=== PATIENT | female | born 2000 | race Caucasian/White ===

== ENCOUNTER 2023-08-19 14:18 | Outpatient (CLI) | payer OTHER ==
--- NOTE | 2023-08-20 08:15 | MRI Report ---
PROCEDURE: KNEE WO - LT INDICATIONS: KNEE PAIN TECHNIQUE: Noncontrast sagittal PD fast spin echo and T2 fast spin echo with fat saturation, sagittal 3-D spoile d GE with fat saturation; coronal T1 spin echo and PD fast spin echo with fat saturation, and axial P D fast spin echo with fat saturation through the knee. COMPARISON: None. FINDINGS: Image quality: Excellent. Anterior cruciate ligament: Intact. Posterior cruciate ligament: Intact. Medial collateral ligament: Intact. Lateral collateral ligament: Intact. Medial meniscus: Intact. Lateral meniscus: Intact. Medial and lateral tendons: The semimembranosus tendon insertions appear intact. Visualized portion s of the pes anserinus tendons appear normal. The popliteus tendon appears intact. Iliotibial band appears normal. Anterior structures: Mild patella lukas. The patellar tendon and the distal quadriceps tendon appear i ntact. No patellar subluxation. No femoral trochlear dysplasia or ventral trochlear prominence. Mild subtle edema at the superolateral aspect of the infrapatellar fat pad. Bones: No acute trabecular bone injury or fracture. Medial femorotibial cartilage: Intact. Lateral femorotibial cartilage: Intact. Patellofemoral cartilage: Intact. Soft tissues: There is a physiologic amount of joint fluid. There is a small medial popliteal cyst. The musculature surrounding the knee is normal in bulk. IMPRESSION: 1.No acute trabecular bone injury. Cruciate and collateral ligaments are intact. No meniscal tear or focal cartilage defect is seen. 2.Mild patella lukas. Mild edema at superolateral aspect of the infrapatellar fat pad can be seen in t he setting of lateral femoral condyle-patellar tendon friction syndrome. Reviewed by: Skyler Campa MD on 08/20/2023 8:13 AM PST Approved by: Skyler Campa MD on 08/20/2023 8:13 AM PST Station ID: [id number]
== END 2023-08-19 14:19 | disposition home or self-care (01) ==
LOC: DI 14:18
PROVIDERS: ATTEND Physician Assistant
DX: M25.562 Pain in left knee (principal)